=== PATIENT | male | born 1945 | race Caucasian/White ===

== ENCOUNTER 2019-03-11 10:56 | Observation (INO) ==
[2019-03-11 11:55] LABS: Basophils % 0.6 %; Eosinophils # 0.4 K/mcL (0.0-0.6); Eosinophils % 7.8 %; Hematocrit 35.2 % (37.5-50.1); Hemoglobin 11.9 g/dL (12.9-16.9); Immature Granulocytes % 0.9 % (0-4); Lymphocytes % 18.6 %; Mean Corpuscular HGB Conc 33.8 g/dL (31.6-35.5); Mean Corpuscular Hemoglobin 29.8 pg (28.0-33.3); Mean Corpuscular Volume 88.2 fL (83.0-100.0); Mean Platelet Volume 8.4 fL (9.4-12.4); Monocytes # 0.7 K/mcL (0.0-1.3); Monocytes % 13.2 %; Neutrophils # 3.2 K/mcL (1.6-8.9); Platelet Count 286 K/mcL (140-400); Red Blood Count 3.99 M/mcL (4.19-5.50); Red Cell Distribution Width 13.2 % (11.5-14.5); Segmented Neutrophils % 58.9 %; White Blood Count 5.4 K/mcL (4.3-11.1)
[2019-03-11 12:15] LABS: BUN/Creatinine Ratio 16 (6-26); Blood Urea Nitrogen 24 mg/dL (8-23); Calcium 9.3 mg/dL (8.6-10.3); Carbon Dioxide 28 mEq/L (23-29); Chloride 103 mEq/L (98-107); Glucose 188 mg/dL (70-105); Osmolality,Calculated 297 (280-300); Potassium 3.7 mEq/L (3.5-5.1); Sodium 139 mEq/L (136-145); Troponin I < 0.03 ng/mL (< 0.04); eGFR For African Americans 57 (> 60); eGFR For Non-African Americans 47 (> 60)
[2019-03-11] MEDS ORDERED: Ipratropium/Albuterol Neb 3 ML IH ONE (12:54)
[2019-03-11] MEDS ORDERED: Isovue-370 500 ML BOTTLE IVP ONE (13:27)
[2019-03-11] MEDS ORDERED: methylPREDNISolone 125 MG/2 ML VIAL IVP ONE (15:08)
[2019-03-11] MEDS ORDERED: Acetaminophen 325 MG TABLET PO PRN (16:01)
[2019-03-11] MEDS ORDERED: Ondansetron 4 MG/2 ML VIAL IVP PRN (16:01)
[2019-03-11] MEDS ORDERED: Naloxone 0.4 MG/ML INJ IVP PRN (16:01)
[2019-03-11] MEDS ORDERED: Ipratropium/Albuterol Neb 3 ML IH PRN (16:05)
[2019-03-11] MEDS ORDERED: Azithromycin 500 MG in 0.9 % Sodium Chloride 250 ML IVPB SCH (17:00)
[2019-03-11] MEDS ORDERED: [UNRECOGNIZED DRUG - OTHER] TP PRN (18:26)
[2019-03-11] MEDS: *HR* HYDROcodone/Acet 5/325 mg TABLET PO PRN (21:00)
[2019-03-11] MEDS: Mirtazapine 15 MG TABLET PO SCH (21:05)
[2019-03-11] MEDS: Apixaban 5 MG TABLET PO SCH (21:06)
[2019-03-11] MEDS: carvediloL 25 MG TABLET PO SCH (21:11)
[2019-03-11] MEDS: Budesonide Neb 0.5 MG/2 ML IH SCH (21:42)
[2019-03-11] MEDS ORDERED: MethylPREDNISolone 40 MG/ML VIAL IVP SCH (22:00)
[2019-03-11] MEDS: Piperacillin/Tazobactam 3.375 GM in 0.9 % Sodium Chloride Mini Bag 100 ML IVPB SCH (23:39)
[2019-03-12 02:12] LABS: Basophils % 0.2 %; Hematocrit 34.2 % (37.5-50.1); Hemoglobin 11.6 g/dL (12.9-16.9); Immature Granulocytes % 0.7 % (0-4); Lymphocytes # 0.4 K/mcL (0.6-4.6); Lymphocytes % 7.9 %; Mean Corpuscular HGB Conc 33.9 g/dL (31.6-35.5); Mean Corpuscular Hemoglobin 29.6 pg (28.0-33.3); Mean Corpuscular Volume 87.2 fL (83.0-100.0); Mean Platelet Volume 8.7 fL (9.4-12.4); Monocytes # 0.1 K/mcL (0.0-1.3); Monocytes % 1.3 %; Platelet Count 286 K/mcL (140-400); Red Blood Count 3.92 M/mcL (4.19-5.50); Red Cell Distribution Width 12.8 % (11.5-14.5); Segmented Neutrophils % 89.9 %; White Blood Count 5.5 K/mcL (4.3-11.1)
[2019-03-12 02:36] LABS: Magnesium 2.1 mg/dL (1.6-2.6); Potassium 4.3 mEq/L (3.5-5.1)
[2019-03-12] MEDS ORDERED: MethylPREDNISolone 40 MG/ML VIAL IVP SCH (03:00)
[2019-03-12] MEDS: *HR* HYDROcodone/Acet 5/325 mg TABLET PO PRN ×2 (03:19→20:59)
[2019-03-12 03:41] LABS: ABG Base Excess 1 mEq/L (-2 to 3); ABG HCO3 26 mEq/L (21-27); ABG Oxygen Saturation 95 % (95-98); ABG PCO2 40 mmHg (35-45); ABG PH 7.42 pH Units (7.32-7.45); ABG PO2 75 mmHg (85-104); ABG TCO2 27 mEq/L (20-26); Blood Gas Pressure Support 6 cm H2O
[2019-03-12] MEDS: Doxycycline 100 MG in 0.9 % Sodium Chloride Mini Bag 100 ML IVPB SCH ×2 (05:28→20:59)
[2019-03-12] MEDS: Budesonide Neb 0.5 MG/2 ML IH SCH ×2 (07:41→20:26)
[2019-03-12 08:34] LABS: Estimated Average Glucose 154 mg/dl
[2019-03-12] MEDS: amLODIPine 5 MG TABLET PO SCH (09:11)
[2019-03-12] MEDS: Aspirin Enteric Coated 81 MG Tablet PO SCH (09:11)
[2019-03-12] MEDS: Apixaban 5 MG TABLET PO SCH ×2 (09:11→20:56)
[2019-03-12] MEDS: carvediloL 25 MG TABLET PO SCH ×2 (09:11→16:28)
[2019-03-12] MEDS: Loratadine 10 MG TABLET PO SCH (09:12)
[2019-03-12] MEDS: Cholecalciferol (D-3) 1,000 UNIT (25MCG) TABLET PO SCH (09:12)
[2019-03-12] MEDS: Piperacillin/Tazobactam 3.375 GM in 0.9 % Sodium Chloride Mini Bag 100 ML IVPB SCH ×2 (09:12→16:28)
[2019-03-12] MEDS: Cyanocobalamin (B-12) 1,000 MCG TABLET PO SCH (09:12)
[2019-03-12] MEDS ORDERED: D5% in Water 1,000 ML IVC PRN (10:13)
[2019-03-12] MEDS ORDERED: *HR* Dextrose 50 % in Water (Syg) 50 ML SYRINGE IVP PRN (10:13)
[2019-03-12] MEDS ORDERED: Dextrose Gel 15 GM/37.5 ML TUBE PO PRN ×2 (10:13)
[2019-03-12] MEDS ORDERED: Perflutren Lipid Microsphere 1.3 ML in 0.9 % Sodium Chloride 8.7 ML IVP ONE (11:30)
[2019-03-12] MEDS: Insulin LISPRO 300 UNITS/3 ML VIAL SQ SCH ×3 (13:30→22:41)
[2019-03-12] MEDS: Mirtazapine 15 MG TABLET PO SCH (20:55)
[2019-03-13] MEDS: Piperacillin/Tazobactam 3.375 GM in 0.9 % Sodium Chloride Mini Bag 100 ML IVPB SCH ×3 (00:13→16:04)
[2019-03-13 04:27] LABS: Basophils % 0.1 %; Eosinophils % 0.1 %; Hematocrit 31.4 % (37.5-50.1); Hemoglobin 10.4 g/dL (12.9-16.9); Immature Granulocytes % 0.6 % (0-4); Lymphocytes # 0.7 K/mcL (0.6-4.6); Lymphocytes % 6.7 %; Mean Corpuscular HGB Conc 33.1 g/dL (31.6-35.5); Mean Corpuscular Hemoglobin 29.5 pg (28.0-33.3); Mean Platelet Volume 8.4 fL (9.4-12.4); Monocytes # 0.8 K/mcL (0.0-1.3); Monocytes % 7.6 %; Neutrophils # 8.5 K/mcL (1.6-8.9); Platelet Count 299 K/mcL (140-400); Red Blood Count 3.53 M/mcL (4.19-5.50); Segmented Neutrophils % 84.9 %
[2019-03-13 04:42] LABS: Calcium 8.7 mg/dL (8.6-10.3); Magnesium 2.3 mg/dL (1.6-2.6); Potassium 3.9 mEq/L (3.5-5.1)
[2019-03-13] MEDS: *HR* HYDROcodone/Acet 5/325 mg TABLET PO PRN (06:56)
[2019-03-13] MEDS: Doxycycline 100 MG in 0.9 % Sodium Chloride Mini Bag 100 ML IVPB SCH (06:56)
[2019-03-13] MEDS: Budesonide Neb 0.5 MG/2 ML IH SCH ×2 (07:37→20:24)
[2019-03-13] MEDS: Aspirin Enteric Coated 81 MG Tablet PO SCH (08:05)
[2019-03-13] MEDS: amLODIPine 5 MG TABLET PO SCH (08:05)
[2019-03-13] MEDS: carvediloL 25 MG TABLET PO SCH ×2 (08:06→17:07)
[2019-03-13] MEDS: Cholecalciferol (D-3) 1,000 UNIT (25MCG) TABLET PO SCH (08:06)
[2019-03-13] MEDS: Insulin LISPRO 300 UNITS/3 ML VIAL SQ SCH ×4 (08:06→20:30)
[2019-03-13] MEDS: Cyanocobalamin (B-12) 1,000 MCG TABLET PO SCH (08:06)
[2019-03-13] MEDS: Loratadine 10 MG TABLET PO SCH (08:06)
[2019-03-13] MEDS: Apixaban 5 MG TABLET PO SCH ×2 (08:06→20:29)
[2019-03-13] MEDS ORDERED: MethylPREDNISolone 40 MG/ML VIAL IVP SCH (09:00)
[2019-03-13] MEDS: Mirtazapine 15 MG TABLET PO SCH (20:29)
[2019-03-14 05:44] LABS: Hematocrit 33.5 % (37.5-50.1); Hemoglobin 11.1 g/dL (12.9-16.9); Mean Corpuscular HGB Conc 33.1 g/dL (31.6-35.5); Mean Corpuscular Hemoglobin 29.9 pg (28.0-33.3); Mean Corpuscular Volume 90.3 fL (83.0-100.0); Mean Platelet Volume 8.7 fL (9.4-12.4); Platelet Count 336 K/mcL (140-400); Red Blood Count 3.71 M/mcL (4.19-5.50); Red Cell Distribution Width 12.8 % (11.5-14.5); White Blood Count 9.6 K/mcL (4.3-11.1)
[2019-03-14 06:07] LABS: Calcium 8.8 mg/dL (8.6-10.3); Potassium 4.1 mEq/L (3.5-5.1)
[2019-03-14] MEDS: Insulin LISPRO 300 UNITS/3 ML VIAL SQ SCH ×2 (07:59→12:57)
[2019-03-14] MEDS: Budesonide Neb 0.5 MG/2 ML IH SCH (08:05)
[2019-03-14] MEDS: amLODIPine 5 MG TABLET PO SCH (08:14)
[2019-03-14] MEDS: carvediloL 25 MG TABLET PO SCH (08:14)
[2019-03-14] MEDS: Apixaban 5 MG TABLET PO SCH (08:14)
[2019-03-14] MEDS: Cyanocobalamin (B-12) 1,000 MCG TABLET PO SCH (08:15)
[2019-03-14] MEDS: *HR* HYDROcodone/Acet 5/325 mg TABLET PO PRN (08:15)
[2019-03-14] MEDS: Aspirin Enteric Coated 81 MG Tablet PO SCH (08:15)
[2019-03-14] MEDS: Cholecalciferol (D-3) 1,000 UNIT (25MCG) TABLET PO SCH (08:15)
[2019-03-14] MEDS: Loratadine 10 MG TABLET PO SCH (08:16)
[2019-03-14] MEDS: Piperacillin/Tazobactam 3.375 GM in 0.9 % Sodium Chloride Mini Bag 100 ML IVPB SCH ×2 (08:16)
[2019-03-14 10:32] VITALS: BP 157/80
[2019-03-14] MEDS ORDERED: Aminoglycoside Consult 1 EACH MC ONE (14:46)
== END 2019-03-14 14:47 | disposition home or self-care (01) ==
LOC: 3ANU 10:56 → EMEROOARM 10:56 → SUATTDRO 15:40 → 3ANU 17:21
PROVIDERS: ADMIT Pharmacist; ATTEND Internal Medicine